=== PATIENT | female | born 1995 | race Caucasian/White ===

== ENCOUNTER → 2019-05-20 09:58 | Outpatient (CLI) | payer SELFPAY | END | disposition home or self-care (01) | LOC: D.LDO 09:58 | PROVIDERS: ATTEND Obstetrics & Gynecology | DX: O26.892 Other specified pregnancy related conditions, second trimester (principal); Z3A.22 22 weeks gestation of pregnancy ==

== ENCOUNTER 2019-07-25 07:43 | Emergency (ER) | payer MEDICAID ==
[~2019-07-25] VITALS: Ht 170.2 cm; Wt 100.0 kg
[2019-07-25 07:50] VITALS: Ht 170.2 cm; Wt 100.0 kg
[2019-07-25] MEDS ORDERED: PRENAVITE1 TAB PO (07:51)
[2019-07-25] MEDS ORDERED: ZOLOFT25 MG PO (07:52)
[2019-07-25 09:53] VITALS: BP 126/71
== END 2019-07-25 09:57 | disposition home or self-care (01) ==
LOC: D.ER 07:43
DX: O99.519 Diseases of the respiratory system complicating pregnancy, unspecified trimester (principal); Z3A.00 Weeks of gestation of pregnancy not specified

== ENCOUNTER 2019-08-06 18:49 | Outpatient (CLI) | payer MEDICAID ==
[2019-07-25 07:50] VITALS: BMI 34.5
[~2019-08-06 18:49] MED LIST: PRENAVITE1 TAB PO; ZOLOFT25 MG PO
[2019-08-06 19:53] LABS: BILIRUBIN NEGATIVE (NEGATIVE); GLUCOSE NEGATIVE (NEGATIVE); KETONE NEGATIVE (NEGATIVE); NITRITE NEGATIVE (NEGATIVE); UROBILINOGEN 4 mg/dL (NORMAL)
[2019-08-06 20:02] LABS: UDS - AMPHET NEGATIVE QUAL (NEGATIVE); UDS - BARB NEGATIVE QUAL (NEGATIVE); UDS - BENZO NEGATIVE QUAL (NEGATIVE); UDS - COCAINE NEGATIVE QUAL (NEGATIVE); UDS - OPIATE NEGATIVE QUAL (NEGATIVE); UDS - PCP NEGATIVE QUAL (NEGATIVE); UDS - THC NEGATIVE QUAL (NEGATIVE)
== END 2019-08-07 23:00 | disposition home or self-care (01) ==
LOC: D.LDO 18:49 → D.LD 23:01 → D.LDO 08-07 23:00
PROVIDERS: ATTEND Student in an Organized Health Care Education/Training Program
DX: O26.899 Other specified pregnancy related conditions, unspecified trimester (principal)

== ENCOUNTER 2019-08-26 11:17 | Emergency (ER) | payer MEDICAID ==
[2019-08-26 11:28] VITALS: Ht 170.2 cm
[2019-08-26] MEDS ORDERED: ZPAK PO (11:50)
[2019-08-26] MEDS ORDERED: GUAIFENESI100 MG/5 M PO (11:50)
[2019-08-26 11:56] VITALS: BP 132/60
== END 2019-08-26 11:56 | disposition home or self-care (01) ==
LOC: D.ER 11:17
DX: H66.92 Otitis media, unspecified, left ear (principal)

== ENCOUNTER 2019-09-22 05:00 | Inpatient (IN) | payer MEDICAID ==
[~2019-09-22] VITALS: Ht 170.2 cm; Wt 99.8 kg
[~2019-09-22 05:00] MED LIST changes: +GUAIFENESI100 MG/5 M PO; +ZPAK PO
[2019-09-22 05:13] VITALS: BP 114/68; Ht 170.2 cm; Wt 99.8 kg
[2019-09-22 05:52] LABS: HEMOGLOBIN 11.3 g/dL (12-16); MCH 28.7 pg (26.0-34.0); MCHC 33.2 g/dL (31.0-37.0); MCV 86.3 fL (80.0-100.0); MEAN PLATELET VOLUME 10.3 fL (7.4-10.4); RBC 3.94 10x6/uL (4.00-5.40); RDW 13.4 % (11.5-14.5); WBC 9.4 10x3/uL (4.8-10.8)
[2019-09-22 06:18] LABS: UDS - AMPHET NEGATIVE QUAL (NEGATIVE); UDS - BARB NEGATIVE QUAL (NEGATIVE); UDS - BENZO NEGATIVE QUAL (NEGATIVE); UDS - COCAINE NEGATIVE QUAL (NEGATIVE); UDS - OPIATE NEGATIVE QUAL (NEGATIVE); UDS - PCP NEGATIVE QUAL (NEGATIVE); UDS - THC NEGATIVE QUAL (NEGATIVE)
[2019-09-22 06:21] LABS: BILIRUBIN NEGATIVE (NEGATIVE); GLUCOSE NEGATIVE (NEGATIVE); KETONE NEGATIVE (NEGATIVE); NITRITE NEGATIVE (NEGATIVE); UROBILINOGEN NORMAL (NORMAL)
[2019-09-22 06:23] LABS: BACTERIA MANY /hpf (NEGATIVE); EPITHELIAL CELLS 0-5 /hpf (0-5); RED CELLS - URINE 0-5 /hpf (0-5); WHITE CELLS - URINE 0-5 /hpf (NEGATIVE)
--- NOTE | 2019-09-22 17:49 | MORECARE ---
CASE MANAGEMENT DISCHARGE SUMMARY PATIENT: MIRZA MENDOSA UNIT: [id number] ADM DATE: 09/22/19 AGE: 23 : 89 SEX: F ROOM/BED: D.1276 AUTHOR: MANNY PIRES PHYSICIAN: REFERRING PHYSICIAN: JERONIMO COOPER MD DATE OF SERVICE: 09/22/19 Discharge Plan Patient Name: MIRZA MENDOSA Facility: [facility]:[place] : 1995 Planned Disposition: Home Anticipated Discharge Date: 09/25/19 Discharge Date: Expected LOS: 3 Initial Reviewer: [email or web address] Initial Review Date: 09/22/2019 Generated: 09/22/19 6:49 pm Patient Name: MIRZA MENDOSA Page [id number] at 1747 All edits/amendments must be made on the electronic document DICTATION DATE: 09/22/191748 MEMBERSHIP COUNSELOR: VU 09/22/191748 RPT#: [id number] DC DATE: STATUS: ADM IN [facility] [address] [place] [address] END OF REPORT
--- NOTE | 2019-09-22 21:20 | NUR ---
REPORT GIVEN TO Marcello GAMA RN. PT PROVIDED WITH SANDWICH TRAY AND WATER AT THIS TIME. Marcello CHAVEZ RN
--- NOTE | 2019-09-22 21:20 | NUR ---
RECEIVED PT IN THE TUB ROOM. REPORT WAS GIVEN BY JES.
--- NOTE | 2019-09-22 21:45 | NUR ---
PT ASSESSMENT COMPLETED. PT IS RESTING QUIETLY. SHE HAS HER BABY IN HER ARMS BREAST FEEDING. HEART SOUNDS WNL, LUNGS CLEAR. PT HAS NO C/O AT THIS TIME. LOCHIA IS MOD. DIAPER ICE PACK TO JOHN AREA. FUNDUS IS FIRM AT UU. PT HAS VOIDED. HER ROOM MATE, KATHY, IS HERE WTIH HER.
[2019-09-22 22:15] VITALS: BP 115/75
--- NOTE | 2019-09-22 22:15 | NUR ---
PT STATES THAT SHE VOIDED A LARGE AMT AFTER AMBULATING TO THE BR. NO C/P
--- NOTE | 2019-09-23 00:02 | NUR ---
PT RESTING QUIETLY IN BED. NO C/O.
--- NOTE | 2019-09-23 00:10 | NUR ---
I WENT TO PT AGAIN TO ASK HER IF SHE NEEDED PAIN MEDS. SHE STATES SHE DOESN'T.
--- NOTE | 2019-09-23 00:12 | NUR ---
PT C/O PAIN. SHE RATES THIS A 7. SHE IS STILL HAVING PROBLEMS GETTING OUT OF BED. PT IS WALKING IN THE ROOM HOLDING THE BABY AND PATTING HIS BOTTOM. PT MOM IS HERE.
--- NOTE | 2019-09-23 02:19 | NUR ---
LOOKED IN ON PT. SHE IS RESTING WITH HER EYES CLOSED WITH REGUALR, NORMAL RESPIRATIONS.
--- NOTE | 2019-09-23 03:58 | NUR ---
PT IS SLEEPING AT THIS TIME. BABY IS IN THE CRIB BESIDE HER SLEEPING.
[2019-09-23 05:09] LABS: RAPID PLASMA REAGIN Non Reactive (Non Reactive)
--- NOTE | 2019-09-23 05:09 | NUR ---
PT C/O PAIN IN HER JOHN AREA WHICH IS REALLY SWOLLWEN. SHE RECEIVED NARCO 5 MG PO AND TORADOL PO PER ORDERS. SHE HAS A NEW DIAPER ICE BAG TO HER JOHN AREA. SHE STATES HER BLEEDING IS SMALL AT THIS TIME. SHE HAS BEEN AMBULATING TO THE BR AND VOIDING WELL. PT REQUESTS CRANABERRY JUICE WHICH WAS DELIVERED TO HER. SHE WILL CALL IF SHE HAS ANY MORE NEEDS.
[2019-09-23 05:42] LABS: HEMATOCRIT 31.9 % (36.0-48.0); HEMOGLOBIN 10.6 g/dL (12-16); MCH 28.6 pg (26.0-34.0); MCHC 33.2 g/dL (31.0-37.0); MCV 86.2 fL (80.0-100.0); MEAN PLATELET VOLUME 10.3 fL (7.4-10.4); RBC 3.7 10x6/uL (4.00-5.40); RDW 13.4 % (11.5-14.5); WBC 10.5 10x3/uL (4.8-10.8)
--- NOTE | 2019-09-23 06:04 | NUR ---
PT IS AWAKE. SHE STATES HER PAIN IS MUCH BETTER NOW RATING IT A 3.
[2019-09-23 07:20] VITALS: BP 109/69
--- NOTE | 2019-09-23 07:20 | NUR ---
RECEIVED PT LYING TO LEFT SIDE IN BED. WAKES UPON ENTERING ROOM. VSS. HRRR WITHOUT AUDIBLE MURMUR. BBS CLEAR. BS X 4. ABDOMEN SOFT/NON-DISTENDED. FUNDUS FIRM AT U/2. RUBRA LOCHIA SMALL AMT. PERINEUM WITHOUT EDEMA. PT STATES PASSED SMALL CLOT LAST PM. DENIES HEAVY BLEEDING OR CLOTS THE SIZE OF EGG OR BIGGER. NEG HOMANS' SIGN. PPP. MILD, NON-PITTING EDEMA NOTED TO FEET/ANKLES. SL TO LEFT WRIST CLEAR. PT C/O ABDOMINAL CRAMPING OF "3" ON 0-10 PAIN SCALE. STATES PAIN MEDICATION RELIEVING PAIN. DENIES NEEDS AT THIS TIME. SR UP X 2. CALL LIGHT IN REACH.
--- NOTE | 2019-09-23 08:10 | NUR ---
PT C/O SL SITE PAIN. DC'D WITH CATHELON INTACT. PRESSURE BANDAGE TO SITE.
--- NOTE | 2019-09-23 08:13 | NUR ---
PT UP TO SHOWER. BED LINENS CHANGED. PT GIVEN TYLENOL 1000 MG PO ORDERED.
--- NOTE | 2019-09-23 08:47 | NUR ---
DR COOPER HERE. VISITS WITH PT.
--- NOTE | 2019-09-23 10:22 | NUR ---
PT SITTING UP IN BED. CARING FOR INFANT. DENIES NEEDS OR C/O.
--- NOTE | 2019-09-23 10:44 | NUR ---
PT CALLS ON LIGHT. REQUESTS AND RECEIVES PAIN MED. TORADOL 10 MG GIVEN PO ORDERED FOR PT C/O PAIN TO PERINEUM AND ABDOMINAL CRAMPING. PT INSTRUCTED ON MED. VERBALIZES UNDERSTANDING.
--- NOTE | 2019-09-23 11:35 | NUR ---
PT REQUESTS AND RECEIVES DERMAPLAST SPRAY.
--- NOTE | 2019-09-23 13:00 | NUR ---
PT SITTING UP IN BED. VISITS WITH FRIEND. DENIES NEEDS OR C/O.
--- NOTE | 2019-09-23 13:52 | NUR ---
REPORT TO Anika GONZALEZ RN
--- NOTE | 2019-09-23 13:52 | NUR ---
LAYING IN BED HOLDING . SCHEDULE TYLENOL GIVEN 5/10 VAGINAL STINGING, BACK ACHE. IF PAIN NOT RELIEVED WITH 1000 MG TYLENOL WILL OFFER NORCO ORDERED. SIDE RAILS UP X 1, CALL LIGHT IN REACH. VISITOR ASLEEP ON COUCH.
--- NOTE | 2019-09-23 15:02 | NUR ---
SITTING UP IN BED INFANT. SAYS HER PAIN IS BETTER 3/10. SAYS THE BABY IS NOT WANTING TO LATCH. DISCUSSED METHODS FOR LATCHING INCLUDING NIPPLE ROLLING AND EXPRESSION OF COLOSTRUM. INFANT HAS HAD ON BOTTLE FOR LOW BS BUT BREASTFED WITH DIFFICULTY YESTERDAY. NOTED PT TO BE WEARING SMALL SPORTS BRA THAT APPEAR TO BE COMPRESSING BREASTS. RECOMMENDED REMOVING SPORTS BRA AND EXPLAINED WHY. RECOMMEND COMFORTABLE LOOSE BRA IF PLANNING TO CONTINUE TO BREASTFEED. DISCUSS USE OF WARM PACKS, SHOWER, NIPPLE STIM TO STIMULATE MILK PRODUCTION VS COLD PACKS, TIGHT COMPRESSION BRA, AVOIDING NIPPLE STIM AND HOT SHOWERS FOR MOTHERS NOT PLANNING TO BREASTFEED. VERBALIZED UNDERSTANDING. CALL LIGHT IN REACH. TO CALL IF ANYTHING IS NEEDED.
--- NOTE | 2019-09-23 17:57 | NUR ---
SITTING UP IN BED HOLDING INFANT AND TALKING ON PHONE. SAYS SHE DOESN'T NEED ANYTHING RIGHT NOW. WAITING ON DC.
--- NOTE | 2019-09-23 19:06 | NUR ---
CHAO RN AND Navid GONZALEZ RN TO BEDSIDE FOR BEDSIDE SHIFT REPORT. PT CURRENTLY SITTING UP IN BED TENDING TO BABY. PM SHIFT POC DISCUSSED W/PT. PT VERBALIZES UNDERSTANDING AND AGREEABLE. DENIES NEEDS AT THIS TIME.
[2019-09-23 19:27] VITALS: BP 106/74
--- NOTE | 2019-09-23 19:27 | NUR ---
THIS RN TO BEDSIDE FOR SHIFT ASSESSMENT. SEE FLOWSHEET. PAIN AND NEEDS ASSESSED. PT REPORTS LOWER BACK PAIN AND UMBILICUS PAIN RATED 3/10. PAIN MED TEACHING PROVIDED. PT VERBALIZES UNDERSTANDING. TYLENOL 1000MG PO TO BE ADMIN AT NEXT AVAILABLE TIME. PT PLANS D/C/TONIGHT. BABY TO ROOM AT THIS TIME FOR NURSING. PT TO RING CALL LIGHT ONCE SHE HAS FINISHED NURSING SO THIS RN MAY DO DISCHARGE TEACHING WITH HER. DENIES NEEDS AT THIS TIME.
--- NOTE | 2019-09-23 20:30 | NUR ---
PT RINGS CALL LIGHT REPORTING SHE IS READY FOR DISCHARGE. THIS RN TO BEDSIDE TO PROVIDE D/C/ INSTRUCTIONS TO IN PP VAG DELIVERY, BREASTCARE FOR MOMS, PAIN MEDICATION, POST BIRHT WARNING SIGNS,FOLLOW UP APPT NEEDING TO BE SCHEDULED, PP DEPRESSION. ALL INFORMATION/HANDOUTS PROVIDED TO PT. PT DENIES QUESTIONS. DISCHARGE PAPERS SIGNED. PT MEDICATED W/TYLENOL 1000MG PRIOR TO DISCHARGE SO PT WILL HAVE PAIN RELIEF UNTIL SHE CAN OBTAIN PERSONAL TYLENOL OR MOTRIN. SEE JUL.
--- NOTE | 2019-09-23 20:55 | NUR ---
PT DISCHARGED HOME IN STABLE CONDITION WITH BABY. PT TRANSPORTED VIA W/C TO AWAITING CAR TO BE DRIVEN HOME ([facility]).
--- NOTE | 2019-09-25 08:43 | MORECARE ---
CASE MANAGEMENT DISCHARGE SUMMARY PATIENT: MIRZA MENDOSA UNIT: [id number] ADM DATE: 09/22/19 AGE: 23 : [birth year] SEX: F ROOM/BED: D.1257 AUTHOR: MANNY PIRES PHYSICIAN: REFERRING PHYSICIAN: JERONIMO COOPER MD DATE OF SERVICE: 09/25/19 Discharge Plan Patient Name: MIRZA MENDOSA Facility: [facility]:[place] : 1995 Planned Disposition: Home Anticipated Discharge Date: 09/25/19 Discharge Date: 09/23/2019 Expected LOS: 3 Initial Reviewer: [email or web address] Initial Review Date: 09/22/2019 Generated: 09/25/19 9:42 am Last DP export: 09/22/19 4:49 p Patient Name: MIRZA MENDOSA Page [id number] at 0843 All edits/amendments must be made on the electronic document DICTATION DATE: 09/25/19842 DRUG COORDINATOR: VU 09/25/19 0843 RPT#: [id number] DC DATE:09/23/19 STATUS: DIS IN [facility] [address] [place] [address] END OF REPORT
--- NOTE | 2019-09-25 09:28 | MORECARE ---
CASE MANAGEMENT DISCHARGE SUMMARY PATIENT: MIRZA MENDOSA UNIT: [id number] ADM DATE: 09/22/19 AGE: 23 : [birth year] SEX: F ROOM/BED: D.1257 AUTHOR: MANNY PIRES PHYSICIAN: REFERRING PHYSICIAN: JERONIMO COOPER MD DATE OF SERVICE: 09/25/19 Discharge Plan Patient Name: MIRZA MENDOSA Facility: [facility]:[place] : 1995 Planned Disposition: Home Anticipated Discharge Date: 09/25/19 Discharge Date: 09/23/2019 Expected LOS: 3 Initial Reviewer: [email or web address] Initial Review Date: 09/22/2019 Generated: 09/25/19 10:27 am Last DP export: 09/25/19 7:43 a Patient Name: MIRZA MENDOSA Page [phone] at 0928 All edits/amendments must be made on the electronic document DICTATION DATE: 09/25/19926 DRIFTMAN: VU 09/25/19926 RPT#: [id number] DC DATE:09/23/19 STATUS: DIS IN [facility] [address] [place] [address] END OF REPORT
== END 2019-09-23 20:55 | disposition home or self-care (01) | DRG 807 ==
LOC: D.LD 05:00
PROVIDERS: ADMIT Obstetrics & Gynecology; ATTEND Obstetrics & Gynecology
PROC: 10E0XZZ Delivery of Products of Conception, External Approach (ICD-10-PCS; principal; 2019-09-22)
PROC: 0HQ9XZZ Repair Perineum Skin, External Approach (ICD-10-PCS; 2019-09-22)
DX: O70.0 First degree perineal laceration during delivery (principal); Z37.0 Single live birth; Z3A.39 39 weeks gestation of pregnancy